=== PATIENT | female | born 1980 | race Caucasian/White ===

== ENCOUNTER 2021-03-25 11:01 | Emergency (ER) | payer OTHER, SELFPAY ==
--- NOTE | ~2021-03-25 | US_ITS ---
US abdomen limited INDICATION: Abdominal pain PROCEDURE: Realtime right upper abdominal ultrasound. COMPARISON: No prior studies for comparison. FINDINGS: The pancreas is normal without focal mass or pancreatic ductal dilation. Liver echotexture is normal without focal mass or intrahepatic biliary dilatation. There is normal directional flow i n the portal vein. There are gallstones with wall echo shadow sign. Gallbladder wall not visualized. Common bile duct m easures 4 mm. No sonographic Mackenzie's sign. IMPRESSION: 1: Cholelithiasis. Reviewed, dictated and finalized at location A. IMPRESSION: 1: Cholelithiasis.
--- NOTE | ~2021-03-25 | XR_ITS ---
EXAMINATION: XR chest 2V 03/25/2021 11:55 INDICATION: Rib pain PROCEDURE: 2 view chest COMPARISON: No prior studies for comparison. FINDINGS: The lungs are clear. The cardiomediastinal silhouette is within normal limits. There are no pleural effusions. There is no pneumothorax suspected. IMPRESSION: 1: NO ACUTE CARDIOPULMONARY DISEASE. Reviewed, dictated and finalized at location A.
[2021-03-25 11:12] VITALS: BP 163/89; PULSE 75; RESP 15; TEMP 36.4; O2SAT 100
--- NOTE | 2021-03-25 11:41 | ECG_ITS ---
Measurements Intervals [place] Rate: 71 P: 34 CO: 166 QRS: 50 QRSD: 90 T: 1 QT: 365 QTc: 399 Interpretive Statements SINUS RHYTHM EARLY PRECORDIAL R/S TRANSITION LOW QRS VOLTAGE IN PRECORDIAL LEADS BORDERLINE ST-T WAVE ABNORMALITY- INFERIOR LEADS BASELINE WANDER- AVF BORDERLINE ECG Electronically Signed On 03-25-2021 13:02:48 CDT by Alex Lilly D.O.
--- NOTE | 2021-03-25 11:51 | PC.NURSE ---
Pt to radiology.
--- NOTE | 2021-03-25 12:00 | PC.NURSE ---
Pt from xray to ultrasound. Will collect labs and perform EKG when pt returns to room.
--- NOTE | 2021-03-25 12:17 | ED.GENADULT ---
HPI - General Adult General Chief complaint: Abdominal Pain Stated complaint: Hurts to Breath Time Seen by Provider: 03/25/21 11:22 Source: patient History of Present Illness HPI narrative: Patient is a 40 y/o female complaining of intermittent epigastric pain starting several months ago. She states that her pain radiates to her back. There is no known alleviating or exacerbating factor. She rates her pain as 8/10 when it comes. However, she has no pain at this time. She also has intermittent bilateral lower rib pain. She has a chronic cough which she attributed to smoking. Related Data Home Medications Medication Instructions Recorded Confirmed No Home Medications 03/25/21 03/25/21 Allergies Allergy/AdvReac Type Severity Reaction Status Date / Time No Known Allergies Allergy Verified 03/25/21 11:15 Review of Systems Constitutional: Constitutional: Denies chills, Denies fever(s), Denies headache(s) and Denies weakness Eyes: Eyes: Denies blurry vision ENT: Denies headache(s) and Denies neck pain Cardiovascular: Cardiovascular: Denies chest pain and Denies dyspnea Respiratory: Respiratory: Reports cough, Denies dyspnea and Reports other (rib pain) Gastrointestinal: Gastrointestinal: Reports abdominal pain, Denies diarrhea, Denies nausea and Denies vomiting Genitourinary: Genitourinary: Denies hematuria and Denies dysuria Musculoskeletal: Musculoskeletal: Denies back pain and Denies neck pain Neurologic: Denies headache(s) and Denies weakness Exam Const: General: no acute distress and well developed Orientation/consciousness: oriented to person, oriented to place, oriented to time and patient oriented x3 HENMT: Head: normocephalic Ears: external ears normal General nose exam: Normal external nose present Eyes: General: appearance normal, both eyes and all related structures Conjunctivae: conjunctivae normal Neck: Neck: normal visual inspection and full ROM Chest: Chest palpation & inspection: normal inspection of the chest and no tenderness Resp: Effort & Inspection: normal respiratory effort Auscultation: clear to auscultation bilaterally Cardio: Rate: regular rate Rhythm: regular rhythm GI: GI Palp: No abdominal tenderness and Yes Soft to palpation Skin: General skin exam: normal color and turgor normal Neuro: General: oriented to person, oriented to place, oriented to time and patient oriented x3 Cognition (Neuro): normal cognition Extrem: General: normal to inspection, full ROM and no pedal edema Psych: Appearance: grossly normal Mental Status: mental status grossly normal Affect: normal affect Course Vital Signs Vital signs: Vital Signs Temperature 36.4 C L 03/25/21 11:12 Pulse Rate 75 03/25/21 11:12 Respiratory Rate 15 03/25/21 11:12 Blood Pressure 163/89 H 03/25/21 11:12 Pulse Oximetry 100 03/25/21 11:12 Temperature 36.4 C L 03/25/21 11:12 Pulse Rate 75 03/25/21 11:12 Respiratory Rate 03/25/21 11:12 Blood Pressure 163/89 H 03/25/21 11:12 Pulse Oximetry 03/25/21 11:12 Medical Decision Making Vital Signs Vital Signs: Vital Signs Temperature 36.4 C L 03/25/21 11:12 Pulse Rate 75 03/25/21 11:12 Respiratory Rate 03/25/21 11:12 Blood Pressure 163/89 H 03/25/21 11:12 Pulse Oximetry 100 03/25/21 11:12 Temperature 36.4 C L 03/25/21 11:12 Pulse Rate 75 03/25/21 11:12 Respiratory Rate 03/25/21 11:12 Blood Pressure 163/89 H 03/25/21 11:12 Pulse Oximetry 03/25/21 11:12 Lab Data Result diagrams: 03/25/21 12:23 03/25/21 12:23 Labs: Lab Results 03/25/21 03/25/21 03/25/21 Range/Units 12:23 12:23 12:23 WBC 7.4 (4.5-10.0) K/mm3 RBC 4.95 (4.2-5.4) M/mm3 Hgb 14.4 (12.0-15.0) g/dL Hct 44.5 (37.0-47.0) % MCV 89.9 (80-100) fl MCH 29.1 (26-34) pg MCHC 32.4 (32-36) g/dl RDW 12.8 (11.5-14.5) % Plt Count 237 (150-375) k/m
[2021-03-25 12:35] LABS: Basophils Percent Auto 0.4 % (0.2-1.2); Eosinophils Absolute Auto 0.1 K/mm3 (0-0.3); Eosinophils Percent Auto 1.9 % (0-4.4); Hematocrit 44.5 % (37.0-47.0); Hemoglobin 14.4 g/dL (12.0-15.0); Immature Granulocyte Absolute 0.03 K/mm3 (0.00-0.031); Immature Granulocyte Percent A 0.4 % (0-0.5); Lymphocytes Absolute Auto 1.83 K/mm3 (0.9-3.2); Lymphocytes Percent Auto 24.8 % (18.3-44.2); Mean Corpuscular HGB Conc 32.4 g/dl (32-36); Mean Corpuscular Hemoglobin 29.1 pg (26-34); Mean Corpuscular Volume 89.9 fl (80-100); Mean Platelet Volume 9.6 fl (7.4-10.4); Monocytes Absolute Auto 0.5 K/mm3 (0.1-0.6); Monocytes Percent Auto 7.1 % (2.6-8.5); Neutrophils Absolute Auto 4.8 K/mm3 (1.3-6.7); Neutrophils Percent Auto 65.4 % (45.5-73.1); Platelet Count Result 237 k/mm3 (150-375); Red Blood Count 4.95 M/mm3 (4.2-5.4); Red Cell Distribution Width 12.8 % (11.5-14.5); White Blood Count 7.4 K/mm3 (4.5-10.0)
[2021-03-25 12:37] LABS: Add Urine Microscopic? NO; Appearance Urine Clear (Clear); Bilirubin Urine Negative (Negative); Blood Urine Negative (Negative); Color Urine Straw (Yellow); Glucose Urine UA Negative (Negative); Ketones Urine Negative (Negative); Leukocyte Esterase Ur Negative LEU/UL (Negative); Nitrate Urine Negative (Negative); Protein Urine Negative (Negative); Specific Grav Ur 1.009 (1.001-1.035); Urobilinogen Urine Negative mg/dL (<2.0)
[2021-03-25 12:43] LABS: Alanine Aminotransferase 16 U/L (4-35); Albumin Level 4.6 g/dL (3.5-5.1); Alkaline Phosphatase 92 U/L (38-126); Anion Gap 10 mmol/L (8-16); Aspartate Amino Transferase 22 U/L (14-36); Bilirubin,Total 0.7 mg/dL (0.2-1.3); Blood Urea Nitrogen 8 mg/dL (7-17); Calcium 9.4 mg/dL (8.4-10.2); Carbon Dioxide 25 mmol/L (22-30); Chloride 107 mmol/L (98-107); Estimated CRCL calculation 87 ml/min; Estimated Glomerular Filt Rate > 60; Glucose 90 mg/dL (65-105); Lipase 72 U/L (23-300); Potassium 4.3 mmol/L (3.4-5.0); Sodium 142 mmol/L (137-145)
== END 2021-03-25 13:43 | disposition home or self-care (01) ==
PROVIDERS: Emergency Provider Emergency Medicine; PCP Emergency Medicine
DX: K80.20 Calculus of gallbladder without cholecystitis without obstruction (principal); R10.13 Epigastric pain; R94.31 Abnormal electrocardiogram [ECG] [EKG]; F17.200 Nicotine dependence, unspecified, uncomplicated
CPT/HCPCS: 36415; 71046; 76705; 80053; 81003; 81025; 83690; 85025; 93005; 99284

== ENCOUNTER 2022-12-16 10:11 | Emergency (ER) | payer SELFPAY ==
--- NOTE | 2022-12-16 10:18 | ED.EXTPRO ---
HPI - Extremity Problem General Chief complaint: Extremity Injury, Upper Stated complaint: Right Shoulder Pain Time Seen by Provider: 12/16/22 10:18 Source: patient Mode of arrival: ambulatory Limitations: no limitations History of Present Illness HPI Narrative: Claudia is a 42-year-old female patient presenting to the clinic today with complaints of right shoulder blade pain as well week. She reports this has happened on the left side before and she was having muscle spasms and they gave her a shot of medication as well as some muscle relaxer and this helped her symptoms. Has been taking ibuprofen without relief. States the pain is worse when she is trying to sleep at night due to the positioning of her shoulder. No known injury. Last took ibuprofen this morning. Related Data Allergies Allergy/AdvReac Type Severity Reaction Status Date / Time No Known Allergies Allergy Verified 12/16/22 10:21 Review of Systems Review of Systems: Pertinent positives per HPI. Patient denies any fever, chills, rash, headache, visual changes, dizziness, cough, runny nose, sore throat, shortness of breath, chest pain, palpitations, nausea, vomiting, diarrhea, constipation, abdominal pain, or any urinary issues. 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 There is no relevant family history pertinent to the patient complaint. Exam Narrative: General: Well-developed, well nourished, in no apparent distress Head: Normocephalic, atraumatic. Cardio: Regular rate and rhythm, s1 and s2 normal, no murmur appreciated. Resp: Clear to auscultation bilaterally, no rhonchi, rales, wheezing or rubs. Musculoskeletal: No deformity, tender to palpation over the right trapezius musculature, grossly normal range of motion, bilateral upper muscle strength strong and equal, strong and equal hand grasp bilaterally, peripheral pulse strong, no edema, no cyanosis, normal gait and station Course Course Emergency Course: Portions of this record may have been created with voice recognition software. Level of Care: Express Care Visit Vital Signs Vital signs: Vital signs reviewed MDM - Extremity (Nontraumatic) MDM Narrative Medical decision making narrative: At the time of visit patient is resting comfortably on exam table. I suspect the patient has a right trapezius muscle strain. Will send in prescription for some prednisone and Flexeril. Supportive measures were discussed with the patient and patient agrees with the treatment plan. Differential Diagnosis Differential diagnosis: Likely other (Shoulder dislocation, shoulder tendinitis, rotator cuff injury, subluxation) Discharge Plan Discharge Clinical Impression: Strain of cervical portion of right trapezius muscle Patient Disposition: Home, Self-Care Condition: Stable Instructions: Antibiotic Form, Muscle Strain (ED) Additional Instructions: Take any prescription medication only as prescribed-Flexeril and prednisone Be mindful of sedation precautions given to you if taking a muscle relaxer. May use heat or ice to the affected area Consider massage or chiropractor adjustment if this was discussed with provider May use blue emu, lidocaine patches, or asper cream to affected area
[2022-12-16 10:21] VITALS: BP 150/85; PULSE 82; RESP 16; TEMP 36.5; O2SAT 100
[2022-12-16 10:22] VITALS: BP 150/85; PULSE 82; RESP 16; TEMP 36.5; O2SAT 100
== END 2022-12-16 10:33 | disposition home or self-care (01) ==
PROVIDERS: Emergency Provider Nurse Practitioner Family
DX: S16.1XXA Strain of muscle, fascia and tendon at neck level, initial encounter (principal); F17.210 Nicotine dependence, cigarettes, uncomplicated; X58.XXXA Exposure to other specified factors, initial encounter
CPT/HCPCS: 99213; G0463

== ENCOUNTER 2022-12-19 13:30 | Emergency (ER) | payer SELFPAY ==
--- NOTE | ~2022-12-19 | XR_ITS ---
EXAMINATION: XR shoulder RT min 2V DATE: 12/19/2022 14:13 INDICATION: Right posterior shoulder pain TECHNIQUE: AP internally and externally rotated, AP oblique externally rotated and transscapular Y vi ews of the right shoulder were obtained. COMPARISON: None FINDINGS: Normal alignment. No fracture. Glenohumeral joint is normal. Mild acromioclavicular joint osteoarthr itis. Soft tissues are unremarkable. Visualized portion of the lungs are clear. IMPRESSION: Mild right acromioclavicular osteoarthritis. Reviewed, dictated and finalized at location A.
--- NOTE | ~2022-12-19 | XR_ITS ---
Cervical Spine: AP, lateral, open-mouth views Clinical History: Pain Comparison: 04/13/2018 Findings: The normal lordotic curve is maintained. The vertebral bodies and posterior elements appea r intact. The intervertebral disc spaces are well maintained. Pre-vertebral soft tissues are unremar kable. Impression: No significant abnormality is seen. Reviewed, dictated and finalized at [facility]. Impression: No significant abnormality is seen.
[2022-12-19 13:39] VITALS: BP 154/111; PULSE 78; RESP 16; TEMP 37.2; O2SAT 99
--- NOTE | 2022-12-19 14:01 | ED.EXTPRO ---
HPI - Extremity Problem General Chief complaint: Extremity Injury, Upper Stated complaint: right shoulder pain Time Seen by Provider: 12/19/22 13:45 Source: patient Mode of arrival: ambulatory Limitations: no limitations History of Present Illness HPI Narrative: Claudia is a 42-year-old female patient presenting to clinic today with complaints of pain over her right posterior neck/shoulder radiating down her right arm. She denies any injury. I saw this patient 3 days ago in the [facility] and she was given prescription for prednisone and Flexeril and states that this has not helped her pain. She has also tried lidocaine patches without relief. Currently rates her pain 8/10. States pain is relieved when she raises her arm above her head. Related Data Allergies Allergy/AdvReac Type Severity Reaction Status Date / Time No Known Allergies Allergy Verified 12/19/22 13:36 Review of Systems Review of Systems: Pertinent positives per HPI. Patient denies any fever, chills, rash, headache, visual changes, dizziness, cough, runny nose, sore throat, shortness of breath, chest pain, palpitations, nausea, vomiting, diarrhea, constipation, abdominal pain, or any urinary issues. 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 There is no relevant family history pertinent to the patient complaint. Exam Narrative: General: Well-developed, well nourished, in no apparent distress Head: Normocephalic, atraumatic. Cardio: Regular rate and rhythm, s1 and s2 normal, no murmur appreciated. Resp: Clear to auscultation bilaterally, no rhonchi, rales, wheezing or rubs. Musculoskeletal: No deformity, tender to palpation over the trapezius musculature of the right upper back, no cervical pain or shoulder pain upon palpation, grossly normal range of motion, muscle strength strong and equal, peripheral pulse strong, no edema, no cyanosis, normal gait and station Course Course Emergency Course: Portions of this record may have been created with voice recognition software. Level of Care: Express Care Visit Vital Signs Vital signs: Vital Signs Temperature 37.2 C 12/19/22 13:39 Pulse Rate 78 12/19/22 13:39 Respiratory Rate 16 12/19/22 13:39 Blood Pressure 154/111 H 12/19/22 13:39 Pulse Oximetry 99 12/19/22 13:39 Oxygen Delivery Room Air 12/19/22 13:39 Temperature 37.2 C 12/19/22 13:39 Pulse Rate 78 12/19/22 13:39 Respiratory Rate 16 12/19/22 13:39 Blood Pressure 154/111 H 12/19/22 13:39 Pulse Oximetry 99 12/19/22 13:39 Oxygen Delivery Room Air 12/19/22 13:39 Vital signs reviewed MDM - Extremity (Nontraumatic) MDM Narrative Medical decision making narrative: At the time of visit patient is resting comfortably on the exam table. Cervical spine x-ray and right shoulder x-ray were performed. X-ray shows mild osteoarthritis of the AC joint otherwise normal. X-ray of the cervical spine is negative for any sign of disc disease, herniation, or malalignment. I suspect the patient has a trapezius muscle strain. Will send in prescription for Robaxin and have her stop taking the Flexeril. Supportive measures were discussed with the patient she voiced understanding of discharge instructions and agrees to
== END 2022-12-19 14:51 | disposition home or self-care (01) ==
PROVIDERS: Emergency Provider Nurse Practitioner Family
DX: S16.1XXA Strain of muscle, fascia and tendon at neck level, initial encounter (principal); M19.011 Primary osteoarthritis, right shoulder; F17.210 Nicotine dependence, cigarettes, uncomplicated; X58.XXXA Exposure to other specified factors, initial encounter
CPT/HCPCS: 72050; 73030; 99213; G0463

== ENCOUNTER 2024-05-16 08:31 | Emergency (ER) | payer SELFPAY ==
--- NOTE | 2024-05-16 08:32 | ED.BACK ---
HPI - Back Pain/Injury General Chief Complaint: Back Pain/Injury Stated Complaint: Back Neck Pain Time Seen by Provider: 05/16/24 08:32 Related Data Home Medications Medication Instructions Recorded Confirmed No Home Medications 05/16/24 05/16/24 Allergies Allergy/AdvReac Type Severity Reaction Status Date / Time No Known Allergies Allergy Verified 12/19/22 13:36 [facility] Surgical History Surgical History Hx of prior ablation treatment Hx of tubal ligation Social History Social History Smoking packs per day: 0.5 Smoking cigarettes per day: 10.0 Years smoked: 15 Smoking pack-years: 7.50 Smoking status: Current every day smoker Tobacco type: cigarettes Alcohol intake: current Living arrangements: with family Occupation/Education: occupation 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
[2024-05-16 08:45] VITALS: BP 153/97; PULSE 73; RESP 18; TEMP 36.6; O2SAT 98
--- NOTE | 2024-05-16 08:53 | ED.NECK ---
HPI - Neck Pain/Injury General Chief Complaint: Neck Pain/Injury Stated Complaint: Neck Pain Time Seen by Provider: 05/16/24 08:47 Source: patient Mode of arrival: ambulatory Limitations: no limitations History of Present Illness HPI Narrative: Kalyani is a 43-year-old female patient presenting to the clinic today with complaints of neck pain x1 day. She reports she woke up this morning with neck pain. Is concerned that she may have tweaked something in her neck while sleeping. She denies any known injury to her neck. She denies any cervical radiculopathy, hand weakness, headache, or back pain. Took ibuprofen for pain this morning and has had some relief Related Data Allergies Allergy/AdvReac Type Severity Reaction Status Date / Time No Known Allergies Allergy Verified 12/19/22 13:36 Review of Systems Review of Systems: Pertinent positives per HPI. Patient denies any fever, chills, rash, headache, visual changes, dizziness, cough, runny nose, sore throat, shortness of breath, chest pain, palpitations, nausea, vomiting, diarrhea, constipation, abdominal pain, or any urinary issues. 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 There is no relevant family history pertinent to the patient complaint. Exam Narrative: General: Well-developed, well nourished, in no apparent distress Head: Normocephalic, atraumatic. Cardio: Regular rate and rhythm, s1 and s2 normal, no murmur appreciated. Resp: Clear to auscultation bilaterally, no rhonchi, rales, wheezing or rubs. Musculoskeletal: No deformity,tender to palpation over the posterior lateral right cervical musculature, range of motion limited when turning head side to side due to pain, muscle strength strong and equal, peripheral pulse strong, no edema, no cyanosis, normal gait and station Course Course Emergency Course: Portions of this record may have been created with voice recognition software. Level of Care: Express Care Visit Vital Signs Vital signs: Vital Signs Temperature 36.6 C 05/16/24 08:45 Pulse Rate 73 05/16/24 08:45 Respiratory Rate 18 05/16/24 08:45 Blood Pressure 153/97 H 05/16/24 08:45 Pulse Oximetry 98 05/16/24 08:45 Oxygen Delivery Room Air 05/16/24 08:45 Temperature 36.6 C 05/16/24 08:45 Pulse Rate 73 05/16/24 08:45 Respiratory Rate 18 05/16/24 08:45 Blood Pressure 153/97 H 05/16/24 08:45 Pulse Oximetry 98 05/16/24 08:45 Oxygen Delivery Room Air 05/16/24 08:45 Vital signs reviewed MDM - Neck Pain/Injury MDM Narrative Medical decision making narrative: At the time of visit patient is resting comfortably on the exam table. Patient appears to be nontoxic. Plan: I suspect patient has cervical muscle strain. Will send in prescription for methocarbamol and Medrol Dosepak. Supportive measures were discussed with the patient and they voiced understanding discharge instructions and agrees to treatment plan. Return precautions reviewed Differential Diagnosis Differential diagnosis: Likely disc disorder of cervical region, whiplash injury to neck, cervical radiculopathy, torticollis, cervical spondylosis and strain of neck muscle Discharge Plan Discharge Clinical Impression: Strain of neck m
== END 2024-05-16 09:00 | disposition home or self-care (01) ==
PROVIDERS: Emergency Provider Nurse Practitioner Family; PCP Emergency Medicine
DX: S16.1XXA Strain of muscle, fascia and tendon at neck level, initial encounter (principal); X58.XXXA Exposure to other specified factors, initial encounter; F17.210 Nicotine dependence, cigarettes, uncomplicated
CPT/HCPCS: 99213; G0463